=== PATIENT | male | born 1980 ===

== ENCOUNTER 2017-01-21 06:53 | Day surgery (SDC) | payer OTHER ==
[~2017-01-21] VITALS: Ht 177.8 cm; Wt 88.5 kg
[2017-01-21] VITALS (12 sets, daily range): BP systolic 110–139; BP diastolic 61–80
[~2017-01-21 06:53] MED LIST: TRUVADA 200 MG1 EAC1 ORAL; ZYRTEC10 MG ORAL
[2017-01-21] MEDS ORDERED: Propofol 10mg/ml 20ml IV ONE (07:16)
[2017-01-21] MEDS ORDERED: Bupivacaine w/Epi 0.25% 30ml Vial INJ ONE (07:16)
--- NOTE | 2017-01-21 07:29 | Pre-Procedure Note/Attestation ---
Pre-Procedure Note/Attestation Complete Prior to Procedure Procedure Narrative: repair of ventral epigastric hernia Indications for Procedure Pre-Operative Diagnosis: ventral epigastric hernia Attestation I attest that I discussed the nature of the procedure; its benefits; risks and complications; and alternatives (and the risks and benefits of such alternatives ), prior to the procedure, with the patient (or the patient's legal floor representative). I attest that, if there was a reasonable possibility of needing a blood transfusion, the patient (or the patient's legal floor representative) was given the [facility] standardized written summary, pursuant to the Kalin Beto Blood Safety Act ([place] Health and Safety Code # 1645, as amended). I attest that I re-evaluated the patient just prior to the surgery and that there has been no change in the patient's H&P, except as documented below: MICHELL HUTTON January 21, 2017 07:29
[2017-01-21] MEDS ORDERED: LR 1000ml 1,000 ML IVLG SCH (07:57)
--- NOTE | 2017-01-21 07:57 | Anethesia Preoperative Eval ---
Anesthesia Pre-op PMH/ROS General Date of Evaluation: January 21, 2017 Time of Evaluation: 07:54 Anesthesiologist: Salome ASA Score: ASA 2 Mallampati Score Class I : Soft palate, uvula, fauces, pillars visible Class II: Soft palate, uvula, fauces visible Class III: Soft palate, base of uvula visible Class IV: Only hard plate visible Mallampati Classification: Class II Surgeon: Julia Diagnosis: Ventral hernia Surgical Procedure: Ventral hernia repair Anesthesia History: none Social History: current smoker Family History: no anesthesia problems Allergies: Coded Allergies: CEPHALEXIN (Verified Allergy, Intermediate, 01/20/17) hives Medications: see eMAR Past Medical History Cardiovascular: Denies: CAD, HTN, [place], arrhythmia, other, valve dz Pulmonary: Denies: COPD, MALIK, asthma, other Gastrointestinal/Genitourinary: Reports: GERD - mild, Denies: CRI, ESRD, other Neurologic/Psychiatric: Reports: depression/anxiety, Denies: CVA, TIA, dementia, other Endocrine: Denies: DM, hypothyroidism, other, steroids HEENT: Denies: [place] (L), [place] (R), cataract (L), cataract (R), glaucoma, other Hematology/Immune: Denies: DVT, anemia, bleeding disorder, other Musculoskeletal/Integumentary: Denies: DDD, DJD, OA, RA, edema, other PMH Narrative: as above PSxH Narrative: Dental Anesthesia Pre-op Phys. Exam Physician Exam Last Vital Signs Date Time Temp Pulse Resp B/P Pulse Ox O2 Delivery O2 Flow Rate FiO2 01/21/17 07:25 98.3 69 16 122/73 96 Room Air Constitutional: NAD Neurologic: CN 2-12 intact Cardiovascular: RRR Respiratory: CTA Gastrointestinal: S/NT/ND Airway Exam Mallampati Score: Class II MO: full Neck: flexible ROM: full Teeth: intact Dentures: no lower, no upper Anesthesia Pre-op A/P Labs see chart Studies Pre-op Studies: EKG - NSR Risk Assessment & Plan Assessment: ASA 2 Plan: GA with LMA Pre-Antibiotics Drug: Ancef 1gr. Given Within 1 Hr of Incision: Yes Time Given: 08:10 DONNIE ARAYA M.D. January 21, 2017 07:57
[2017-01-21] MEDS ORDERED: Ketorolac 30mg Inj ONE (08:00)
[2017-01-21] MEDS ORDERED: DiphenhydrAMINE 50mg/ml Inj IVP PRN (08:00)
[2017-01-21] MEDS ORDERED: Hydromorphone 0.5mg/0.5ml inj IVP PRN (08:00)
[2017-01-21] MEDS ORDERED: Ketorolac 30mg Inj IV PRN (08:00)
[2017-01-21] MEDS ORDERED: Meperidine 25mg/0.5ml Inj IM PRN (08:00)
[2017-01-21] MEDS ORDERED: NS Irrig 1000ml ONE (08:00)
[2017-01-21] MEDS ORDERED: Midazolam 2mg/2ml Inj ONE (08:00)
[2017-01-21] MEDS ORDERED: Sterile Water Irrig 1000ml IRRIG ONE (08:00)
[2017-01-21] MEDS ORDERED: Metoclopramide 10mg/2ml Inj IVP PRN (08:00)
[2017-01-21] MEDS ORDERED: LR 1000ml ONE (08:00)
[2017-01-21] MEDS ORDERED: fentaNYL 100 mcg/2 mL IV ONE (08:00)
--- NOTE | 2017-01-21 09:08 | Brief Operative Note ---
Immediate Post Operative Note Operative Note Pre-op Diagnosis: ventral epigastric hernia Procedure: repair of ventral epigastric hernia (no mesh, tiny defect) Post-op Diagnosis: same as pre-op Surgeon: haley Anesthesiologist: elisha Anesthesia: general Specimen: yes - hernia sac and contents Complications: none Condition: stable Estimated Blood Loss: minimal Drains: none Implant(s) used?: No MICHELL HUTTON January 21, 2017 09:07
--- NOTE | 2017-01-21 10:31 | Immediate Post-Op Evaluation ---
Immediate Post-Op Evalulation Immediate Post-Op Evalulation Procedure: Ventral hernia repair Date of Evaluation: January 21, 2017 Time of Evaluation: 09:14 IV Fluids: 1000 Blood Products: none Estimated Blood Loss: min Urinary Output: none Blood Pressure Systolic: 126 Blood Pressure Diastolic: 58 Pulse Rate: 72 Respiratory Rate: 20 O2 Sat by Pulse Oximetry: 99 Temperature (Fahrenheit): 97.4 Pain Score (1-10): 1 Nausea: No Vomiting: No Complications none Patient Status: reacts, patent, none Hydration Status: adequate DONNIE ARAYA M.D. January 21, 2017 10:31
--- NOTE | 2017-01-21 10:40 | 48 Hour Post Anesthesia Eval ---
Post Anesthesia Evaluation Procedure: Ventral hernia repair Date of Evaluation: January 21, 2017 Time of Evaluation: 10:39 Blood Pressure Systolic: 116 0: 72 Pulse Rate: 68 Respiratory Rate: 20 Temperature (Fahrenheit): 97.6 O2 Sat by Pulse Oximetry: 99 Airway: patent Nausea: No Vomiting: No Pain Intensity: 2 Hydration Status: adequate Cardiopulmonary Status: stable Mental Status/LOC: patient returned to baseline Follow-up Care/Observations: n/a Post-Anesthesia Complications: none Follow-up care needed: ready to discharge DONNIE ARAYA M.D. January 21, 2017 10:40
--- NOTE | 2017-01-21 11:59 | Operative Note - Dictated ---
DATE OF OPERATION: 01/21/2017 PREOPERATIVE DIAGNOSIS: Ventral epigastric hernia. POSTOPERATIVE DIAGNOSIS: Ventral epigastric hernia. SURGEON: German Dumont M.D. SERVICE SECRETARY: None. ANESTHESIOLOGIST: Ankit Mcmahon M.D. ANESTHESIA: General with local augmentation. NAME OF OPERATION: Repair ventral epigastric hernia (no mesh). FINDINGS AND INDICATIONS: The patient is a very pleasant 36-year-old, male, who has a history of an increasing bulge above the umbilicus approximately 2 inches or so with some intermittent pain, the bulge is being enlarger in the recent past when he has done more physical exercise. He came to see me after his attending physician examined him and found the ventral hernia. I advised the patient to undergo repair and he consented to this knowing the indications, risks, benefits, possible complications, and possible recurrence etc. At that orifice, at surgery was very small, with approximately 3 to 5 millimeter defect, which was repaired with interrupted 2-0 Ethibond suture. Procedure was uneventful. DESCRIPTION OF PROCEDURE: With the patient lying in the supine position on the operating table, under general anesthesia with local Marcaine 0.5% with epinephrine augmentation with the entire epigastric region prepped and draped in usual sterile fashion with Betadine, a vertical incision was carried out over the bulging mass subcutaneous tissues divided, hemostasis achieved with the cautery and then the ventral hernia sac was identified, dissected free all the way around with a very narrow neck and a small orifice. The contents were then amputated since it was so difficult to reduce and being that the orifice was so small and then the edges of the defect were cleansed and approximated with 2-0 Ethibond interrupted sutures. The area was irrigated. Hemostasis was adequate. Subcutaneous tissues were approximated with 3-0 Vicryl suture and the skin with 4-0 Vicryl subcuticular sutures and Steri-Strips. Marcaine 0.5% with epinephrine 25 mL was injected for long-acting local anesthetic. The patient tolerated the procedure well. Estimated blood loss was Less than 5 mL. Sponge and needle counts were correct. He went to the recovery room in stable condition. German Dumont M.D. DR: Miguel JOB#: [id number] CC:
[2017-01-21] MEDS ORDERED: HYDROmorphone 1mg/ml Carpuject SUBQ PRN (18:00)
[2017-01-21] MEDS ORDERED: Tylenol #3 tab (300mg/30mg) ORAL PRN (18:00)
== END 2017-01-21 10:45 | disposition home or self-care (01) ==
LOC: SUR 06:53
DX: K43.9 Ventral hernia without obstruction or gangrene (principal); K21.9 Gastro-esophageal reflux disease without esophagitis; F32.9 Major depressive disorder, single episode, unspecified; F41.9 Anxiety disorder, unspecified; F12.90 Cannabis use, unspecified, uncomplicated
CPT/HCPCS: 49560; J0690; J1885; J2250; J2405; J2704; J3010; J7120; 94003; 94150